=== PATIENT | female | born 1995 | race Caucasian/White ===

== ENCOUNTER 2019-11-12 17:29 | Emergency (ER) | payer MEDICAID, OTHER ==
[~2019-11-12] VITALS: Ht 167.6 cm; Wt 80.1 kg
[~2019-11-12 17:29] MED LIST: TRAM50TA2 PO
--- NOTE | 2019-11-12 18:00 | NUR ---
TO ED WITH FRIEND. C/O UPPER MID ABD PAIN 03/14. BURNING/DULL/ACHEY. RADIATES INTO R SCAPULA. TOOK NO PAIN MEDS AT HOME. X1.5 DAYS. VOMITED X2. NO DIARRHEA. STARTED TAKING WELLBUTRIN 3 WKS AGO. LOST 20 LBS IN 3 WKS. STS HAS NO APPETITE. TACHY 120S, STS HER NORM RESTING HR IS 110S, HAS TACHYCARDIA FOR UNK REASON, POSS ANXIETY. OOB FOR UA. AWAITING MD. CALL [facility]INO IN [facility].
[2019-11-12 18:51] LABS: BASOPHILS # (AUTO) 0.02 x10^3/uL (0-0.1); BASOPHILS % (AUTO) 0 % (0-1); EOSINOPHILS # (AUTO) 0.02 x10^3/uL (0-0.4); EOSINOPHILS % (AUTO) 0 % (1-7); LYMPHOCYTES # (AUTO) 1.22 x10^3/uL (1-3.4); LYMPHOCYTES % (AUTO) 17 % (22-44); MD NO; MEAN CORPUSCULAR VOLUME 87.9 fL (80-100); MEAN PLATELET VOLUME 10.1 fL (7.4-10.4); MONOCYTES % (AUTO) 7 % (2-9); NEUTROPHILS % (AUTO) 76 % (42-75); PLATELET COUNT 188 x10^3/uL (130-400); RED BLOOD COUNT 5.19 x10^6/uL (3.82-5.3); RED CELL DISTRIBUTION WIDTH 13.2 % (9.6-15.2)
[2019-11-12 18:52] LABS: ALANINE AMINOTRANSFERASE 40 U/L (12-78); ALBUMIN 4.2 g/dL (3.4-5.0); ANION GAP 7 mmol/L (5-15); CALCIUM 9.2 mg/dL (8.5-10.1); CHLORIDE 106 mmol/L (98-107); CREATININE 0.88 mg/dL (0.55-1.02)
[2019-11-12 18:57] LABS: ALKALINE PHOSPHATASE 87 U/L (45-117); BILIRUBIN,TOTAL 0.6 mg/dL (0.2-1.0); TOTAL PROTEIN 8.3 g/dL (6.4-8.2)
[2019-11-12 19:05] LABS: MICROSCOPIC INDICATED
[2019-11-12 19:07] LABS: CULTURE INDICATED? NO
[2019-11-12 19:10] VITALS: BP 113/79
--- NOTE | 2019-11-12 19:10 | NUR ---
AWAIITNG URINE MICRO. RESTING IN BED NO NEEDS AT THIS TIME CALL [facility]INO IN [facility].
== END 2019-11-12 19:59 | disposition home or self-care (01) ==
LOC: ED 19:53
DX: N23 Unspecified renal colic (principal)
CPT/HCPCS: 36415; 76700; 80053; 81001; 83690; 84703; 85025; 99284

== ENCOUNTER 2019-11-14 00:22 | Emergency (ER) | payer MEDICAID ==
[~2019-11-14] VITALS: Ht 167.6 cm; Wt 79.7 kg
--- NOTE | 2019-11-14 00:53 | NUR ---
Pt ambulated to room. Pt seen yesterday for similar sx, says pain and nausea have only gotten worse. A&ox4
[2019-11-14] MEDS ORDERED: ONDANSETRON ODT 4 MG PO ONE (01:00)
[2019-11-14] MEDS ORDERED: MAALOX/HYOSCYAMINE/LIDOCAINE 45 ML BTL PO ONE (01:00)
[2019-11-14] MEDS ORDERED: ONDANSETRON ODT 4 MG ONE (01:04)
[2019-11-14] MEDS ORDERED: MAALOX/HYOSCYAMINE/LIDOCAINE 45 ML BTL ONE (01:04)
[2019-11-14 01:21] LABS: BASOPHILS % (AUTO) 0 % (0-1); EOSINOPHILS # (AUTO) 0.05 x10^3/uL (0-0.4); EOSINOPHILS % (AUTO) 1 % (1-7); LYMPHOCYTES # (AUTO) 1.13 x10^3/uL (1-3.4); LYMPHOCYTES % (AUTO) 14 % (22-44); MD NO; MEAN CORPUSCULAR HEMOGLOBIN 29.4 pg (27.0-34.8); MEAN CORPUSCULAR HGB CONC 33.5 g/dL (32.4-35.8); MEAN CORPUSCULAR VOLUME 87.8 fL (80-100); MEAN PLATELET VOLUME 9.6 fL (7.4-10.4); MONOCYTES # (AUTO) 0.46 x10^3/uL (0.2-0.8); MONOCYTES % (AUTO) 6 % (2-9); NEUTROPHILS # (AUTO) 6.46 x10^3/uL (1.8-6.8); NEUTROPHILS % (AUTO) 80 % (42-75); PLATELET COUNT 190 x10^3/uL (130-400); RED BLOOD COUNT 5.03 x10^6/uL (3.82-5.3); RED CELL DISTRIBUTION WIDTH 13.3 % (9.6-15.2)
[2019-11-14 01:32] LABS: ALANINE AMINOTRANSFERASE 33 U/L (12-78); ALBUMIN 3.7 g/dL (3.4-5.0); ANION GAP 6 mmol/L (5-15); CALCIUM 8.8 mg/dL (8.5-10.1); CHLORIDE 108 mmol/L (98-107); CREATININE 0.92 mg/dL (0.55-1.02)
[2019-11-14 01:34] LABS: ALKALINE PHOSPHATASE 80 U/L (45-117); BILIRUBIN,TOTAL 0.3 mg/dL (0.2-1.0); TOTAL PROTEIN 7.8 g/dL (6.4-8.2)
[2019-11-14] MEDS ORDERED: PROMETHAZINE 25 MG/ML, 1ML ONE (01:39)
[2019-11-14] MEDS ORDERED: MORPHINE SULFATE 4 MG/ML, 1ML ONE ×2 (01:40→03:09)
[2019-11-14] MEDS: MORPHINE SULFATE 4 MG/ML, 1ML IVPush PRN ×2 (01:49→03:11)
[2019-11-14] MEDS ORDERED: PROMETHAZINE 25 MG/ML, 1ML IM ONE (02:00)
[2019-11-14 03:13] VITALS: BP 110/75
[2019-11-14] MEDS ORDERED: OMNIPAQUE 350 MG/ML, 100ML BOTTLE ONE (03:20)
== END 2019-11-14 03:22 | disposition home or self-care (01) ==
LOC: ED 01:34
DX: R10.13 Epigastric pain (principal); R11.0 Nausea; K59.00 Constipation, unspecified; R00.0 Tachycardia, unspecified
CPT/HCPCS: 36415; 74018; 74177; 80053; 83690; 85025; 96372; 96374; 96376; 99285; J2270; J2550; Q0162; Q9967